=== PATIENT | female | born 1960 | race Caucasian/White ===

== ENCOUNTER 2018-08-24 11:08 | Emergency (ER) ==
[2018-08-24 11:13] VITALS: BP 138/89; TEMP 99; BMI 28.5
--- NOTE | 2018-08-24 12:28 | ED.PDOC ---
General ED Provider: Dr. ESTRELLA POTTER Chief Complaint: Non-specific Complaint Stated Complaint: Nausea and vomiting. Lab yesterday in office revealed decreased potassium to 2.0, BUN 15 and Creat 0.73. State has been tolerating oral liquids well and ate a chicken sandwich. Has not had N-V since yesterday- only mild diarrhea. Hx reveals patinent had went to [facility] on 08/13 and developed illness. Time Seen by Physician: 11:20 Mode of Arrival: Walk-In Information Source: Patient Exam Limitations: No limitations Primary Care Provider: MICHELLE SERRANO Referred to ED by: PCP Nursing and Triage Documentation Reviewed and Agree: Yes Does patient meet sepsis criteria?: No If yes, has appropriate treatment been initiated?: No System Inflammatory Response Syndrome: Not Applicable Sepsis Protocol: For patient's 13 years and over: Temp is 96.8 and below OR 101 and greater Pulse >90 BPM Resp >20/minute Acutely Altered Mental Status Are patient's symptoms suggestive of a new infection, such as: -Pneumonia -Skin, Soft Tissue -Endocarditis -UTI -Bone, Joint Infection -Implantable Device -Acute Abdominal Infection -Wound Infection -Meningitis -Blood Stream Catheter Infection -Unknown GI Complaint Exam - Vomiting/Diarrhea Complaint/Exam Onset/Duration: 07/13 Symptoms Are: Resolved Episodes of Vomiting over last 24 Hours: 0 Episodes of Diarrhea Over Last 24 Hours: 1 Initial Severity: Severe Current Severity: Mild Character of Vomiting: Reports: Non-bilious Character of Diarrhea: Reports: Watery Aggravating: Reports: None Alleviating: Reports: Clear liquids Associated Signs and Symptoms: Denies: Dizziness, Light-headedness, Melena, Hematemesis, Fever, Abdominal pain, Cramping Last Oral Intake: This AM Non-GI Risk Factors: Reports: None Surgical Obstruction Risk Factors: Reports: None Related Surgical History: Reports: None Abdominal Findings: Present: None Differential Diagnoses: Dehydration, Viral Gastroenteritis, Other (hypokalemia) Review of Systems - Review Of Systems Constitutional: Reports: No symptoms Eyes: Reports: No symptoms Ears, Nose, Mouth, Throat: Reports: No symptoms Respiratory: Reports: No symptoms Cardiac: Reports: No symptoms GI: Reports: No symptoms : Reports: No symptoms Musculoskeletal: Reports: No symptoms Skin: Reports: No symptoms Neurological: Reports: No symptoms Endocrine: Reports: No symptoms Hematologic/Lymphatic: Reports: No symptoms All Other Systems: Reviewed and Negative Past Medical History - Past Medical History Previously Healthy: Yes Endocrine: Reports: Hypothyroid Cardiovascular: Reports: None Respiratory: Reports: None Hematological: Reports: Anemia Gastrointestinal: Reports: None Genitourinary: Reports: Kidney stones Neuro/Psych: Reports: Anxiety Musculoskeletal: Reports: None Cancer: Reports: None Last Menstrual Period: n/a - Surgical History General Surgical History: Reports: Hysterectomy, Cholecystectomy - Family History Family History: Reports: Unknown - Social History Smoking Status: Never smoker Hx Substance Use: No Alcohol Screening: Occasionally Physical Exam - Physical Exam Appearance: Well-appearing, No pain distress Ill-appearing: Mild Pain Distress: None Eyes: EDITH, EOMI, Conjunctiva clear ENT: Ears normal, Nose normal, Oropharynx normal Neck: Supple Respiratory: Airway patent, Breath sounds clear, Breath sounds equal, Respirations nonlabored Cardiovascular: RRR, Pulses normal, No rub, No murmur GI/: Soft, Nontender, No masses, Bowel sounds normal, No Organomegaly Musculoskeletal: Normal strength, ROM intact, No edema, No calf tenderness Skin: Warm, Dry, Normal color Neurological: Sensation intact, Motor intact, Reflexes intact, Cranial nerves intact, Alert, Oriented Psychiatric: Affect appropriate, Mood appropriate Critical Care Note - Critical Care Note Total Time (mins): 60 Course - Course Hematology/Chemistry: 08/24/18 12:20 08/24/18 12:20 Orders, Labs, Meds: Lab Review 08/24/18 08/24/18 08/24/18 12:20 12:20 12:55 WBC 5.42 RBC 4.37 Hgb 12.5 Hct 38.2 MCV 87.4 MCH 28.6 MCHC 32.7 RDW Coeff of Silvina 12.6 Plt Count 164 Immature Gran % (Auto) 0.7 Neut % (Auto) 61.9 Lymph % (Auto) 26.8 [place] % (Auto) 8.5 Eos % (Auto) 1.5 Baso % (Auto) 0.6 Immature Gran # (Auto) 0.0 Neut # (Auto) 3.4 Lymph # (Auto) 1.5 [place] # (Auto) 0.5 Eos # (Auto) 0.1 Baso # (Auto) 0.0 Sodium 140.2 Potassium 3.32 L Chloride 101.9 Carbon Dioxide 29.1 Anion Gap 12.52 BUN 17.5 H Creatinine 0.56 L Estimated GFR (MDRD) 110.00 BUN/Creatinine Ratio 31.25 Glucose 88.6 Calcium 8.77 Total Bilirubin 0.48 AST 22.1 ALT 16.2 Alkaline Phosphatase 71.5 Total Creatine Kinase 39.4 Total Protein 6.73 Albumin 3.68 Globulin 3.05 Albumin/Globulin Ratio 1.20 Urine Color Yellow Urine Clarity Clear Urine pH 6.0 Ur Specific [place] 1.025 Urine Protein Trace Urine Glucose (UA) Negative Urine Ketones Negative Urine Blood Trace-lysed Urine Nitrite Negative Urine Bilirubin Negative Urine Urobilinogen 1.0 Ur Leukocyte Esterase Negative Urine Microscopic RBC 0-2 Ur Squamous Epith Cells Not present Urine Mucus 2+ Orders Category Date Time Status CBC W/ AUTO DIFF Stat LAB 08/24/18 12:20 Completed CMP [COMPREHENSIVE METABOLIC PANEL] Stat LAB 08/24/18 12:20 Completed CPK [CREATINE KINASE] Stat LAB 08/24/18 12:20 Completed UA [URINALYSIS C & S IF INDICATED] Stat LAB 08/24/18 12:55 Completed Potassium Chloride [K-Dur] MEDS 08/24/18 13:29 Discontinued 20 meq PO ONCE STA Potassium Chloride [Potassium Chloride Premix Run] 100 MEDS 08/24/18 13:57 Discontinued ml IV .STK-MED Potassium Chloride [Potassium Chloride Premix Run] 20 MEDS 08/24/18 13:52 Discontinued meq Premix 100 ml Water 1 bag IV ONCE Sodium Chloride 0.9% [Sodium Chloride] 500 ml MEDS 08/24/18 13:53 Discontinued IV BOLUS Medications Discontinued Medications Generic Name Dose Route Start Last Admin Trade Name Freq PRN Reason Stop Dose Admin Potassium Chloride 20 meq/ 100 mls @ 50 mls/hr 08/24/18 13:52 08/24/18 14:06 Sterile Water IV 08/24/18 15:51 50 mls/hr ONCE STA Administration Sodium Chloride 500 mls @ 250 mls/hr 08/24/18 13:53 08/24/18 14:07 Sodium Chloride IV 08/24/18 15:52 250 mls/hr BOLUS STA Administration Potassium Chloride 20 meq 08/24/18 13:29 08/24/18 14:09 K-Dur PO 08/24/18 13:30 20 meq ONCE STA Administration Vital Signs: Temp Pulse Resp BP Pulse Ox 08/24/18 11:09 99.0 F 78 20 138/89 97 Departure - Departure Time of Disposition: 16:40 Disposition: DISCH/TSF TO A [facility] Discharge Problem: Hypokalemia, gastrointestinal losses Instructions: Hypokalemia (ED), Dehydration (ED) Condition: Good Pt referred to PMD for follow-up: Yes (See Dr Castillo in office in AM for additional Lab) IPMP verified?: No Additional Instructions: Have Lab obtained at [facility] office in AM Diet as tolerated Consume adequate oral fluids Allergies/Adverse Reactions: Allergies meperidine HCl [From Demerol] Adverse Reaction (Verified 08/24/18 11:14) sulfacetamide sodium [From Sulfamide] Adverse Reaction (Verified 08/24/18 11:14) Home Medications: Ambulatory Orders Desloratadine [Clarinex] 5 mg PO DAILY 03/29/14 Esomeprazole Magnesium [Nexium] 40 mg PO DAILY 03/29/14 Fluoxetine HCl [Prozac] 40 mg PO DAILY 03/29/14 Ibandronate Sodium [Boniva] 150 mg PO MONTHLY 03/29/14 Lisinopril 2.5 mg PO DAILY 08/24/18 Oxybutynin Chloride [Ditropan Xl] 10 mg PO DAILY 08/24/18 Disposition Discussed With: Patient, Family, Other (Dr Castillo) Additional Information: Lab returned and reviewed Will initiate IV KCL plus supplemental po KCL
[2018-08-24] MEDS ORDERED: POTASSIUM CHLORIDE PREMIX RUN 20 MEQ in PREMIX 100 ML WATER 2 BAG IV STA (13:28)
[2018-08-24] MEDS ORDERED: K-DUR PO STA (13:29)
[2018-08-24] MEDS ORDERED: POTASSIUM CHLORIDE PREMIX RUN 20 MEQ in PREMIX 100 ML WATER 1 BAG IV STA (13:52)
[2018-08-24] MEDS ORDERED: SODIUM CHLORIDE 500 ML IV STA (13:53)
[2018-08-24] MEDS ORDERED: POTASSIUM CHLORIDE PREMIX RUN 100 ML IV ONE (13:57)
== END 2018-08-24 16:50 | disposition home or self-care (01) ==
LOC: ED 11:08
DX: E87.6 Hypokalemia (principal); R11.2 Nausea with vomiting, unspecified; R19.7 Diarrhea, unspecified
CPT/HCPCS: 36415; 80053; 81001; 82550; 85025; 96365; 96366; 99283